=== PATIENT | female | born 1945 | race Caucasian/White ===

== ENCOUNTER 2020-12-20 15:54 | Emergency (ER) | payer OTHER ==
[~2020-12-20] VITALS: Ht 157.5 cm; Wt 90.7 kg
[2020-12-20] MEDS ORDERED: LOSARTAN POTAS100 MG PO (16:13)
[2020-12-20] MEDS ORDERED: ZOCOR20 MG PO (16:13)
[2020-12-20] MEDS ORDERED: MECLIZINE HCL25 MG PO (21:30)
== END 2020-12-20 22:07 | disposition home or self-care (01) ==
LOC: ER 15:54
DX: R42 Dizziness and giddiness (principal); I95.1 Orthostatic hypotension; G45.8 Other transient cerebral ischemic attacks and related syndromes